=== PATIENT | female | born 1945 | race Caucasian/White ===

== ENCOUNTER 2018-03-19 12:06 | Outpatient (REF) | payer MEDICARE, MEDICAID, SELFPAY ==
[2018-03-19 21:38] LABS: Anion Gap 9.6 mmol/L (3-11); BUN 7 mg/dL (7-18); CO2 27.4 mmol/L (21.0-32.0); CREATININE 0.69 mg/dL (0.55-1.02); Calcium 9.7 mg/dL (8.5-10.1); Chloride 96 mmol/L (98-107); Glucose 84 mg/dL (70-100); Magnesium 1.9 mg/dL (1.8-2.4); Potassium 4.1 mmol/L (3.5-5.1); Sodium 133 mmol/L (136-145); TSH 2.69 uIU/mL (0.358-3.74)
== END 2018-03-19 12:26 ==
LOC: NCHCN 12:06
PROVIDERS: PCP Family Medicine; Visit Provider Family Medicine
DX: E03.9 Hypothyroidism, unspecified (principal)
CPT/HCPCS: 80048; 83735; 84443

== ENCOUNTER 2019-01-18 10:28 | Outpatient (REF) | payer MEDICARE, MEDICAID, SELFPAY ==
[2019-01-18 21:55] LABS: Anion Gap 11.3 mmol/L (3-11); BUN 13 mg/dL (7-18); CO2 25.7 mmol/L (21.0-32.0); CREATININE 0.83 mg/dL (0.55-1.02); Chloride 102 mmol/L (98-107); Glucose 86 mg/dL (70-100); Magnesium 1.9 mg/dL (1.8-2.4); Sodium 139 mmol/L (136-145); TSH 1.93 uIU/mL (0.36-3.74)
== END 2019-01-18 10:48 ==
LOC: NCHCN 10:28
PROVIDERS: PCP Family Medicine; Visit Provider Family Medicine
DX: E03.9 Hypothyroidism, unspecified (principal); I48.0 Paroxysmal atrial fibrillation
CPT/HCPCS: 80048; 83735; 84443

== ENCOUNTER 2021-12-27 09:27 | Outpatient (REF) | payer MEDICARE, MEDICAID, SELFPAY ==
[2021-12-27 15:41] LABS: Anion Gap 8.4 mmol/L (3-11); BUN 10 mg/dL (7-18); CO2 24.6 mmol/L (21.0-32.0); CREATININE 0.8 mg/dL (0.55-1.02); Chloride 99 mmol/L (98-107); Estimated GFR 76.31 (mL/min/1.73m2); Glucose 83 mg/dL (74-106); Magnesium 2.1 mg/dL (1.8-2.4); Potassium 4.1 mmol/L (3.5-5.1); Sodium 132 mmol/L (136-145); TSH 4.04 uIU/mL (0.36-3.74)
== END 2021-12-27 09:28 | disposition home or self-care (01) ==
LOC: NCHCN 09:27
PROVIDERS: PCP Family Medicine; Visit Provider Family Medicine
DX: E03.9 Hypothyroidism, unspecified (principal); I48.0 Paroxysmal atrial fibrillation
CPT/HCPCS: 80048; 83735; 84443